=== PATIENT | male | born 1960 | race Caucasian/White ===

== ENCOUNTER 2017-12-08 10:40 | Emergency (ER) | payer BC ==
--- NOTE | 2017-12-08 12:21 | RAD REPORT ---
EXAM DESCRIPTION: RAD -Hand Left 3 View - 12/08/2017 12:13 pm CLINICAL HISTORY: Hand pain and swelling status post injury FINDINGS: An oblique minimally displaced intra-articular fracture involves the base of second proxim al phalanx. No dislocation is seen
--- NOTE | 2017-12-08 12:52 | ER ---
Nurse's Notes [facility] Name: Hunter Lopez Age: 57 yrs Sex: Male : 1960 Arrival Date: 12/08/2017 Time: 10:41 Bed 13 Private MD: Andre Scott Diagnosis: Displaced fracture of proximal phalanx of left index finger Presentation: 12/08 10:45 Presenting complaint: Patient states: L hand was hurt when i was using a deer feeder 2 hj days ago, its swollen and pain 10/10; reports numbness on the four knuckles;. Transition of care: patient was not received from another setting of care. Onset of symptoms was December 08, 2017. Risk Assessment: Do you want to hurt yourself or someone else? Patient reports no desire to harm self or others. Initial Sepsis Screen: Does the patient meet any 2 criteria? No. Patient's initial sepsis screen is negative. Does the patient have a suspected source of infection? No. Patient's initial sepsis screen is negative. Care prior to arrival: None. 10:45 Method Of Arrival: Ambulatory 10:45 Acuity: ROBERTA 4 hj Triage Assessment: 10:47 General: Appears in no apparent distress. uncomfortable, Behavior is calm, cooperative, hj appropriate for age. Pain: Complains of pain in left hand. Musculoskeletal: Reports pain in left hand. Injury Description: Deformity smashed. Historical: - Allergies: 10:48 No Known Allergies; hj - Home Meds: 10:48 None [Active]; hj - PMHx: 10:48 None; hj - PSHx: 10:48 Hernia repair; hj - Immunization history:: Adult Immunizations up to date. - Social history:: Smoking status: Patient uses tobacco products, smokes one-half pack cigarettes per day, Patient/guardian denies using alcohol. - Ebola Screening: : Patient negative for fever greater than or equal to 101.5 degrees Fahrenheit, and additional compatible Ebola Virus Disease symptoms Patient denies exposure to infectious person Patient denies travel to an Ebola-affected area in the 21 days before illness onset. Screenin:47 Abuse screen: Denies threats or abuse. Denies injuries from another. Nutritional hj screening: No deficits noted. Tuberculosis screening: No symptoms or risk factors identified. Fall Risk None identified. Assessment: 11:00 General: Appears in no apparent distress. comfortable, well groomed, well developed, sg well nourished, Behavior is calm, cooperative, appropriate for age. Pain: Complains of pain in left index finger Pain does not radiate. Quality of pain is described as aching. Neuro: Level of Consciousness is awake, alert, obeys commands, Oriented to person, place, time, Battery Charger Tester are Gait is steady, Speech is normal, Facial symmetry appears normal. Cardiovascular: Heart tones S1 S2 present Patient's skin is warm and dry. Respiratory: Airway is patent Respiratory effort is even, unlabored, Respiratory pattern is regular, symmetrical. GI: No signs and/or symptoms were reported involving the gastrointestinal system. : No signs and/or symptoms were reported regarding the genitourinary system. EENT: No signs and/or symptoms were reported regarding the EENT system. Derm: Skin is pink, warm \T\ dry. Bruising that is green, yellow, on dorsal aspect of proximal phalanx of left index finger and dorsum of left hand. Musculoskeletal: Circulation, motion, and sensation intact. Range of motion: intact in all extremities, Swelling present in left index finger. Vital Signs: 10:48 BP 165 / 87; Pulse 58; Resp 18; Temp 97.8(TE); Pulse Ox 100% on R/A; Weight 90.72 kg; hj Height 5 ft. 8 in. (172.72 cm); Pain 10/10; 10:48 Body Mass Index 30.41 (90.72 kg, 172.72 cm) ED Course: 10:41 Patient arrived in ED. sb2 10:41 Andre Scott MD is Private Physician. sb2 10:47 Triage completed. hj 10:47 Arm band placed on right wrist. hj 10:48 Patient has correct armband on for positive identification. Bed in low position. Call light in reach. Side rails up X 1. 10:57 Stanley Jerez NP is PHCP. pm1 10:58 Gabriel Sams MD is Attending Physician. pm1 11:10 Johan Rader, SILVERIO is Primary Nurse. sg 12:10 Hand Left 3 View XRAY In Process Unspecified. EDMS 12:51 Samir Schroeder MD is Referral Physician. pm1 13:20 No provider procedures requiring assistance completed. IV discontinued, intact, ss bleeding controlled, No redness/swelling at site. Pressure dressing applied. 13:20 Patrick wrap to left wrist a volar splint was applied to left hand and left forearm. ss Administered Medications: No medications were administered Outcome: 12:52 Discharge ordered by MD. pm1 13:20 Discharged to home ambulatory, with family. ss 13:20 Condition: good 13:20 Discharge instructions given to patient, family, Instructed on discharge instructions, follow up and referral plans. medication usage, safety practices, Demonstrated understanding of instructions, follow-up care, medications, splint care, Prescriptions given X 1. 13:27 Patient left the ED. ss Signatures: Dispatcher [employer] EDMS Johan Rader RN RN Jessi Jewell RN RN Bradley Chamorro RN RN hj Marinas, Patrick, RADHA FORMULA CHECKER pm1 Zeina River sb2 Corrections: (The following items were deleted from the chart) 10:48 10:48 PSHx: None; hj hj 10:51 10:48 Pulse 58bpm; Resp 18bpm; Pulse Ox 100% RA; Temp 97.8F Temporal; 90.72 kg; Height hj 5 ft. 8 in.; BMI: 30.4; Pain 10; hj
--- NOTE | 2017-12-08 12:52 | EDPHYS ---
Physician Documentation [facility] Name: Hunter Lopez Age: 57 yrs Sex: Male : 1960 Arrival Date: 12/08/2017 Time: 10:41 Bed 13 Private MD: Andre Scott ED Physician Gabriel Sams HPI: 12/08 13:00 This 57 yrs old Male presents to ER via Ambulatory with complaints of Finger pm1 Injury. 19:03 The patient or guardian reports pain, swelling. The complaints affect the MCP of left pm1 index finger. Context: The problem was sustained outdoors, resulted from a direct blow, crank handle for deer feeder. Onset: The symptoms/episode began/occurred 2 day(s) ago. Modifying factors: The symptoms are alleviated by ice/coldpack to affected area, the symptoms are aggravated by movement. Associated signs and symptoms: Pertinent negatives: cyanosis distally, decreased sensation distally, numbness distally, tingling distally. Severity of symptoms: in the emergency department the symptoms have improved. The patient has not experienced similar symptoms in the past. Historical: - Allergies: 10:48 No Known Allergies; hj - Home Meds: 10:48 None [Active]; hj - PMHx: 10:48 None; hj - PSHx: 10:48 Hernia repair; hj - Immunization history:: Adult Immunizations up to date. - Social history:: Smoking status: Patient uses tobacco products, smokes one-half pack cigarettes per day, Patient/guardian denies using alcohol. - Ebola Screening: : Patient negative for fever greater than or equal to 101.5 degrees Fahrenheit, and additional compatible Ebola Virus Disease symptoms Patient denies exposure to infectious person Patient denies travel to an Ebola-affected area in the 21 days before illness onset. ROS: 19:03 Constitutional: Negative for fever, chills, and weight loss, Eyes: Negative for injury, pm1 pain, redness, and discharge, ENT: Negative for injury, pain, and discharge, Neck: Negative for injury, pain, and swelling, Cardiovascular: Negative for chest pain, palpitations, and edema, Respiratory: Negative for shortness of breath, cough, wheezing, and pleuritic chest pain, Abdomen/GI: Negative for abdominal pain, nausea, vomiting, diarrhea, and constipation, Back: Negative for injury and pain. 19:03 Skin: Negative for injury, rash, and discoloration, Neuro: Negative for headache, weakness, numbness, tingling, and seizure. 19:03 MS/extremity: Positive for pain, of the MCP of left index finger. Exam: 19:03 Constitutional: This is a well developed, well nourished patient who is awake, alert, pm1 and in no acute distress. Head/Face: Normocephalic, atraumatic. Eyes: Pupils equal round and reactive to light, extra-ocular motions intact. Lids and lashes normal. Conjunctiva and sclera are non-icteric and not injected. Cornea within normal limits. Periorbital areas with no swelling, redness, or edema. ENT: Nares patent. No nasal discharge, no septal abnormalities noted. Tympanic membranes are normal and external auditory canals are clear. Oropharynx with no redness, swelling, or masses, exudates, or evidence of obstruction, uvula midline. Mucous membranes moist. Neck: Trachea midline, no thyromegaly or masses palpated, and no cervical lymphadenopathy. Supple, full range of motion without nuchal rigidity, or vertebral point tenderness. No Meningismus. Chest/axilla: Normal chest wall appearance and motion. Nontender with no deformity. No lesions are appreciated. Cardiovascular: Regular rate and rhythm with a normal S1 and S2. No gallops, murmurs, or rubs. Normal PMI, no JVD. No pulse deficits. Respiratory: Lungs have equal breath sounds bilaterally, clear to auscultation and percussion. No rales, rhonchi or wheezes noted. No increased work of breathing, no retractions or nasal flaring. Abdomen/GI: Soft, non-tender, with normal bowel sounds. No distension or tympany. No guarding or rebound. No evidence of tenderness throughout. Back: No spinal tenderness. No costovertebral tenderness. Full range of motion. Skin: Warm, dry with normal turgor. Normal color with no rashes, no lesions, and no evidence of cellulitis. 19:03 Musculoskeletal/extremity: Extremities: grossly normal except: noted in the MCP of left index finger: pain, swelling, tenderness, ROM: full active range of motion, in the left hand and all fingers. 19:03 Neuro: Orientation: is normal, Motor: is normal, moves all fours. Vital Signs: 10:48 BP 165 / 87; Pulse 58; Resp 18; Temp 97.8(TE); Pulse Ox 100% on R/A; Weight 90.72 kg; hj Height 5 ft. 8 in. (172.72 cm); Pain 10/10; 10:48 Body Mass Index 30.41 (90.72 kg, 172.72 cm) hj MDM: 10:58 Patient medically screened. [facility] 12:50 Data reviewed: vital signs. Counseling: I had a detailed discussion with the patient pm1 and/or guardian regarding: the historical points, exam findings, and any diagnostic results supporting the discharge/admit diagnosis, radiology results, the need for outpatient follow up, for definitive care, a hand specialist, to return to the emergency department if symptoms worsen or persist or if there are any questions or concerns that arise at home. 12/08 11:17 Order name: Hand Left 3 View XRAY; Complete Time: 12:23 pm1 12/08 12:50 Order name: Volar Wrist Splint; Complete Time: 12:52 pm1 Administered Medications: No medications were administered Disposition: 12/09 08:22 Co-signature as Attending Physician, Gabriel Sams MD I agree with the assessment and [facility] plan of care. Disposition: 12/08/17 12:52 Discharged to Home. Impression: Displaced fracture of proximal phalanx of left index finger. - Condition is Stable. - Discharge Instructions: Cast or Splint Care, Adult, Finger Fracture. - Prescriptions for Tylenol- Codeine #3 300-30 mg Oral Tablet - take 2 tablets by ORAL route every 6 hours As needed; 20 tablet. - Medication Reconciliation Form, Thank You Letter, Prescription Opioid Use form. - Follow up: Emergency Department; When: As needed; Reason: Worsening of condition. Follow up: Samir Schroeder MD; When: 2 - 3 days; Reason: Recheck today's complaints, Continuance of care, Re-evaluation by your physician. - Problem is new. - Symptoms have improved. Signatures: Dispatcher [employer] Gabriel Breen MD MD cha Smirch, Shelby, RN RN ss Joaquin, Henry, RN RN hj Marinas, Patrick, RADHA HAIRSPRING II INSPECTOR pm1 Corrections: (The following items were deleted from the chart) 12/08 10:48 10:48 PSHx: None; hj hj 13:27 12:52 12/08/2017 12:52 Discharged to Home. Impression: Displaced fracture of proximal ss phalanx of left index finger. Condition is Stable. Forms are Medication Reconciliation Form, Thank You Letter, Antibiotic Education, Prescription Opioid Use. Follow up: Emergency Department; When: As needed; Reason: Worsening of condition. Follow up: Samir Schroeder; When: 2 - 3 days; Reason: Recheck today's complaints, Continuance of care, Re-evaluation by your physician. Problem is new. Symptoms have improved. pm1
== END 2017-12-08 13:27 | disposition home or self-care (01) ==
LOC: ER 10:40
PROC: 2W3DX1Z Immobilization of Left Lower Arm using Splint (ICD-10-PCS; principal; 2017-12-08)
DX: S62.611A Displaced fracture of proximal phalanx of left index finger, initial encounter for closed fracture (principal); F17.210 Nicotine dependence, cigarettes, uncomplicated; W23.0XXA Caught, crushed, jammed, or pinched between moving objects, initial encounter; Y93.89 Activity, other specified
CPT/HCPCS: 99283